=== PATIENT | female | born 1985 | race American Indian/Alaskan Native ===

== ENCOUNTER 2016-11-23 12:11 | Emergency (ER) | payer MEDICAID ==
--- NOTE | 2016-11-23 13:08 | Emergency Department Report ---
Chief Complaint: Abdominal Pain Stated Complaint: ABD PAIN Time Seen by Provider: 11/23/16 13:05 - HPI History of Present Illness: Pt c/o abd pain x week pt states the pain is a cramping pain that moves locations - ROS Review of Systems: - n + vomited x 1 on cycle now - Exam Physical Exam: looks well, non toxic abd soft and not tender MSE screening note: Focused history and physical exam performed. Due to findings the following was ordered: labs ED Disposition for MSE Condition: Stable
[2016-11-23 13:46] LABS: Basophils % (Auto) 1.2 % (0.0-1.8); Eosinophils % (Auto) 5.3 % (0.0-4.3); Hematocrit 38.6 % (30.3-42.9); Mean Corpuscular HGB Conc 34 % (30-34); Mean Corpuscular Hemoglobin 31 pg (28-32); Mean Corpuscular Volume 91 fl (79-97); Platelet Count 196 K/mm3 (140-440); Red Blood Count 4.25 M/mm3 (3.65-5.03); Red Cell Distribution Width 14.7 % (13.2-15.2); White Blood Count 5.6 K/mm3 (4.5-11.0)
[2016-11-23 14:01] LABS: Alanine Aminotransferase 8 units/L (7-56); Albumin 3.9 g/dL (3.9-5); Albumin/Globulin Ratio 1.3 %; Alkaline Phosphatase 52 units/L (35-129); Anion Gap 15 mmol/L; Blood Urea Nitrogen 8 mg/dL (7-17); Calcium 8.5 mg/dL (8.4-10.2); Carbon Dioxide 26 mmol/L (22-30); Chloride 104.1 mmol/L (98-107); Glucose 79 mg/dL (65-100); Lipase 25 units/L (13-60); Potassium 3.9 mmol/L (3.6-5.0); Sodium 141 mmol/L (137-145); Total Protein 6.9 g/dL (6.3-8.2)
[2016-11-23 14:54] LABS: Bilirubin,Urine NEG (Negative); Blood,Urine SM (Negative); Ketones,Urine NEG (Negative); Leukocyte Esterase,Urine NEG (Negative); Mucus,Urine FEW /HPF; Nitrite,Urine NEG (Negative); Protein,Urine <15 mg/dL mg/dL (Negative); WBC,Urine < 1.0 /HPF (0.0-6.0)
[2016-11-23 18:08] VITALS: BP 119/65
--- NOTE | 2016-11-30 23:40 | ED Elopement Review ---
ED Pt Elopement review - Results review Lab results: Laboratory Tests 11/23/16 11/23/16 11/23/16 13:29 13:29 13:29 WBC 5.6 RBC 4.25 Hgb 13.0 Hct 38.6 MCV 91 MCH 31 MCHC 34 RDW 14.7 Plt Count 196 Lymph % (Auto) 46.6 H Er[place] % (Auto) 6.9 Eos % (Auto) 5.3 H Baso % (Auto) 1.2 Lymph # 2.6 Erath # 0.4 Eos # 0.3 Baso # 0.1 Seg Neutrophils % 40.0 Seg Neutrophils # 2.2 Sodium 141 Potassium 3.9 Chloride 104.1 Carbon Dioxide 26 Anion Gap 15 BUN 8 Creatinine 0.8 Estimated GFR > 60 BUN/Creatinine Ratio 10.00 Glucose 79 Calcium 8.5 Total Bilirubin 0.30 AST 15 ALT 8 Alkaline Phosphatase 52 Total Protein 6.9 Albumin 3.9 Albumin/Globulin Ratio 1.3 Lipase 25 HCG, Qual Negative Urine Color Urine Turbidity Urine pH Ur Specific [place] Urine Protein Urine Glucose (UA) Urine Ketones Urine Blood Urine Nitrite Urine Bilirubin Urine Urobilinogen Ur Leukocyte Esterase Urine WBC (Auto) Urine RBC (Auto) U Epithel Cells (Auto) Urine Mucus 11/23/16 Unknown WBC RBC Hgb Hct MCV MCH MCHC RDW Plt Count Lymph % (Auto) Erath % (Auto) Eos % (Auto) Baso % (Auto) Lymph # [place] # Eos # Baso # Seg Neutrophils % Seg Neutrophils # Sodium Potassium Chloride Carbon Dioxide Anion Gap BUN Creatinine Estimated GFR BUN/Creatinine Ratio Glucose Calcium Total Bilirubin AST ALT Alkaline Phosphatase Total Protein Albumin Albumin/Globulin Ratio Lipase HCG, Qual Urine Color Yellow Urine Turbidity Clear Urine pH 7.0 Ur Specific [place] 1.020 Urine Protein <15 mg/dl Urine Glucose (UA) Neg Urine Ketones Neg Urine Blood Sm Urine Nitrite Neg Urine Bilirubin Neg Urine Urobilinogen 4.0 Ur Leukocyte Esterase Neg Urine WBC (Auto) < 1.0 Urine RBC (Auto) 3.0 U Epithel Cells (Auto) 1.0 Urine Mucus Few - Call Back decision Pt Call Back Decision: No action required
== END 2016-11-23 17:00 ==
LOC: ED 12:11
DX: R10.9 Unspecified abdominal pain (principal); Z53.21 Procedure and treatment not carried out due to patient leaving prior to being seen by health care provider
CPT/HCPCS: 36415; 80053; 81001; 83690; 84703; 85025

== ENCOUNTER 2019-04-03 14:53 | Inpatient (IN) | payer MEDICAID ==
[2019-04-03] MEDS ORDERED: TERBUTALINE 1 MG/1 ML INJ SUB-Q PRN (16:58)
[2019-04-03] MEDS ORDERED: TERBUTALINE 1 MG/1 ML INJ IVP PRN (16:58)
[2019-04-03] MEDS ORDERED: MINERAL OIL 30 ML ORAL LIQD PO PRN (16:58)
[2019-04-03] MEDS ORDERED: fentaNYL 100 MCG/2 ML INJ IV PRN (16:58)
[2019-04-03] MEDS ORDERED: BUTORPHANOL 2 MG/1 ML INJ IV PRN (16:58)
[2019-04-03] MEDS ORDERED: LIDOCAINE (2%) 20 MG/1 ML VIAL 20 ML MDV INFILTRATI ONE (16:58)
[2019-04-03] MEDS ORDERED: OXYTOCIN 20 UNIT/1000ML DRIP 20 UNITS/1,000 ML BAG IV SCH (17:00)
[2019-04-03] MEDS ORDERED: DINOPROSTONE 10 MG VAG SUPP VG ONE (17:30)
[2019-04-03] MEDS: LACTATED RINGERS 1,000 ML IV SCH ×2 (17:39→23:46)
[2019-04-03 18:21] LABS: Hematocrit 32.9 % (30.3-42.9); Hemoglobin 11.3 gm/dl (10.1-14.3); Mean Corpuscular HGB Conc 34 % (30-34); Mean Corpuscular Volume 92 fl (79-97); Platelet Count 235 K/mm3 (140-440); Red Blood Count 3.59 M/mm3 (3.65-5.03); Red Cell Distribution Width 14.2 % (13.2-15.2)
[2019-04-03] MEDS: valACYclovir 500 MG TAB PO SCH (22:00)
--- NOTE | 2019-04-03 23:41 | History and Physical Report ---
History of Present Illness Date of examination: 04/03/19 Date of admission: 04/03/2019 Chief complaint: IOL for nonreassuring NST in clinic History of present illness: 33yo at 40+6/7 weeks by second trimester US with JARRELL 03/28/19; for IOL for Non-reassuring NST in clinic She is without complaint today. 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 Plans BTL-tubal consent signed [facility]: initial visit 08/30/09, last visit 04/03/19, total visits #18 Past History Past Medical History: no pertinent history Past Surgical History: no surgical history [employer] [employer] History: denies: abnormal PAP smear Family/Genetic History: none Social history: no significant social history, single, lives with family - Obstetrical History Expected Date of Delivery: 03/28/19 Actual Gestation: 40 Week(s) 6 Day(s) : 3 Para: 1 Hx # Term Pregnancies: 1 Spontaneous Abortions: 1 Number of Living Children: 1 #1 year: 2,004 Birthweight: 3.175 kg Method of Delivery: Vaginal Gestational age at delivery: 39 Medications and Allergies Allergies Allergy/AdvReac Type Severity Reaction Status Date / Time No Known Allergies Allergy Verified 07/10/15 21:03 Home Medications Medication Instructions Recorded Confirmed Last Taken Type Ferrous Sulfate [Feosol] 325 mg PO TID 04/03/19 04/03/19 04/03/19 09:00 History valACYclovir [Valtrex] 500 tab PO BID 04/03/19 04/03/19 04/03/19 09:00 History Active Meds: Active Medications Butorphanol Tartrate (Stadol) 2 mg IV Q2H PRN PRN Reason: Pain , Severe (7-10) Ephedrine Sulfate (Ephedrine Sulfate) 10 mg IV Q2M PRN PRN Reason: Hypotension Fentanyl (Sublimaze) 100 mcg IV Q2H PRN PRN Reason: Labor Pain Oxytocin/Sodium Chloride (Pitocin/Ns 20 Unit/1000ml Drip) 20 units in 1,000 mls @ 125 mls/hr IV DIRECT NEFTALI Lactated Ringer's (Lactated Ringers) 1,000 mls @ 125 mls/hr IV DIRECT [facility] Last Admin: 04/03/19 17:39 Dose: 125 mls/hr Documented by: Mineral Oil (Mineral Oil) 30 ml PO QHS PRN PRN Reason: Constipation Terbutaline Sulfate (Brethine) 0.25 mg SUB-Q ONCE PRN PRN Reason: Hyperstimulation/Hypertonicity Terbutaline Sulfate (Brethine) 0.25 mg IVP ONCE PRN PRN Reason: Hyperstimulation/Hypertonicity Valacyclovir HCl (Valtrex) 500 mg PO BID [facility] Last Admin: 04/03/19 22:00 Dose: 500 mg Documented by: Review of Systems All systems: negative - Vital Signs Vital signs: Vital Signs Temp Resp BP 97.8 F 18 107/59 04/03/19 15:36 04/03/19 15:36 04/03/19 15:36 Temp Pulse Resp BP Pulse Ox 98.0 F 75 16 128/56 96 04/03/19 20:12 04/03/19 23:31 04/03/19 20:12 04/03/19 20:11 04/03/19 23:31 - Physical Exam Breasts: Positive: deferred Cardiovascular: Regular rate Lungs: Positive: Clear to auscultation Abdomen: Positive: normal appearance Genitourinary (Female): Positive: normal external genitalia Uterus: Positive: normal size Anus/Rectum: Positive: normal perianal skin Extremities: Positive: normal Deep Tendon Reflex Grade: Normal +2 - Obstetrical FHR: category 1 Uterine Contraction Monitor Mode: External Cervical Dilatation: 0.5 Cervical Effacement Percentage: 0 station: -4 Uterine Contraction Pattern: Irregular Uterine Contraction Intensity: Mild Results Result Diagrams: 04/03/19 17:35 Abnormal lab results 04/03/19 Range/Units 17:35 RBC 3.59 L (3.65-5.03) M/mm3 All other labs normal. Assessment and Plan IOL GBS negative Plan cervidil, oxytocin in AM admission labs CFM maternal/ status reassuring overall Stephen SMITH
[2019-04-04] MEDS ORDERED: DINOPROSTONE 10 MG VAG SUPP VG ONE (06:56)
--- NOTE | 2019-04-04 09:46 | Progress Note ---
Assessment and Plan - Patient Problems (1) 41 weeks gestation of Current Visit: Yes Status: Acute (2) Encounter for induction of labor Current Visit: Yes Status: Acute Plan to address problem: Continue current management 2nd cervidil insertion after ambulation and breakfast Anticipate vaginal delivery Subjective - Subjective Date of service: 04/04/19 Principal diagnosis: 41 weeks IUP; IOL for postdates Interval history: see H&P Patient reports: movement normal, no loss of fluid, no vaginal bleeding, no contractions Objective - Vital Signs Vital Signs: Vital Signs - 12hr 04/03/19 04/03/19 04/03/19 21:46 21:51 21:56 Temperature Pulse Rate 73 74 76 Respiratory Rate Blood Pressure O2 Sat by Pulse 97 97 97 Oximetry 04/03/19 04/03/19 04/03/19 22:01 22:06 22:11 Temperature Pulse Rate 87 76 79 Respiratory Rate Blood Pressure O2 Sat by Pulse 98 97 97 Oximetry 04/03/19 04/03/19 04/03/19 22:16 22:21 22:26 Temperature Pulse Rate 72 84 80 Respiratory Rate Blood Pressure O2 Sat by Pulse 97 97 97 Oximetry 04/03/19 04/03/19 04/03/19 22:31 22:36 22:41 Temperature Pulse Rate 79 81 81 Respiratory Rate Blood Pressure O2 Sat by Pulse 97 96 96 Oximetry 04/03/19 04/03/19 04/03/19 22:46 22:51 22:56 Temperature Pulse Rate 85 85 75 Respiratory Rate Blood Pressure O2 Sat by Pulse 96 96 100 Oximetry 04/03/19 04/03/19 04/03/19 23:01 23:06 23:11 Temperature Pulse Rate 77 79 80 Respiratory Rate Blood Pressure O2 Sat by Pulse 100 100 96 Oximetry 04/03/19 04/03/19 04/03/19 23:13 23:16 23:21 Temperature Pulse Rate 78 76 86 Respiratory Rate Blood Pressure O2 Sat by Pulse 94 97 97 Oximetry 04/03/19 04/03/19 04/03/19 23:26 23:31 23:40 Temperature Pulse Rate 76 75 74 Respiratory Rate Blood Pressure 112/59 O2 Sat by Pulse 96 96 99 Oximetry 04/03/19 04/03/19 04/03/19 23:45 23:46 23:50 Temperature 98.3 F Pulse Rate 66 65 Respiratory 16 Rate Blood Pressure O2 Sat by Pulse 96 97 Oximetry 04/03/19 04/04/19 04/04/19 23:55 00:00 00:05 Temperature Pulse Rate 61 66 72 Respiratory Rate Blood Pressure O2 Sat by Pulse 96 95 96 Oximetry 04/04/19 04/04/19 04/04/19 00:10 00:15 00:18 Temperature Pulse Rate 74 74 80 Respiratory Rate Blood Pressure O2 Sat by Pulse 95 95 94 Oximetry 04/04/19 04/04/19 04/04/19 00:20 00:25 00:30 Temperature Pulse Rate 76 63 68 Respiratory Rate Blood Pressure O2 Sat by Pulse 95 97 96 Oximetry 04/04/19 04/04/19 04/04/19 00:35 00:40 03:56 Temperature 98.1 F Pulse Rate 70 75 Respiratory 17 Rate Blood Pressure O2 Sat by Pulse 96 95 Oximetry 04/04/19 04/04/19 04/04/19 03:57 04:26 04:28 Temperature Pulse Rate 60 70 71 Respiratory Rate Blood Pressure 88/43 113/66 O2 Sat by Pulse 100 Oximetry 04/04/19 04/04/19 04/04/19 04:33 04:38 04:43 Temperature Pulse Rate 69 61 74 Respiratory Rate Blood Pressure O2 Sat by Pulse 98 98 98 Oximetry 04/04/19 04/04/19 04/04/19 04:48 04:53 04:58 Temperature Pulse Rate 72 78 61 Respiratory Rate Blood Pressure O2 Sat by Pulse 98 99 100 Oximetry 04/04/19 04/04/19 04/04/19 05:03 05:08 05:13 Temperature Pulse Rate 62 75 61 Respiratory Rate Blood Pressure O2 Sat by Pulse 98 97 98 Oximetry 04/04/19 04/04/19 04/04/19 05:18 05:23 05:28 Temperature Pulse Rate 83 73 65 Respiratory Rate Blood Pressure O2 Sat by Pulse 98 98 99 Oximetry 04/04/19 04/04/19 04/04/19 05:33 05:38 05:43 Temperature Pulse Rate 67 65 73 Respiratory Rate Blood Pressure O2 Sat by Pulse 98 98 97 Oximetry 04/04/19 04/04/19 04/04/19 05:48 05:53 05:58 Temperature Pulse Rate 71 83 80 Respiratory Rate Blood Pressure O2 Sat by Pulse 96 97 98 Oximetry 04/04/19 04/04/19 04/04/19 06:03 06:08 06:13 Temperature Pulse Rate 71 69 67 Respiratory Rate Blood Pressure O2 Sat by Pulse 100 100 98 Oximetry 04/04/19 04/04/19 04/04/19 06:18 06:23 06:28 Temperature Pulse Rate 70 62 85 Respiratory Rate Blood Pressure O2 Sat by Pulse 98 98 98 Oximetry 04/04/19 04/04/19 04/04/19 06:33 06:38 06:43 Temperature Pulse Rate 77 67 73 Respiratory Rate Blood Pressure O2 Sat by Pulse 97 98 97 Oximetry 04/04/19 04/04/19 04/04/19 06:48 06:53 06:58 Temperature Pulse Rate 68 82 73 Respiratory Rate Blood Pressure O2 Sat by Pulse 98 97 97 Oximetry 04/04/19 04/04/19 04/04/19 07:03 07:08 07:13 Temperature Pulse Rate 70 79 74 Respiratory Rate Blood Pressure O2 Sat by Pulse 98 98 98 Oximetry 04/04/19 04/04/19 04/04/19 07:18 07:23 07:28 Temperature Pulse Rate 64 65 83 Respiratory Rate Blood Pressure O2 Sat by Pulse 98 97 96 Oximetry 04/04/19 04/04/19 04/04/19 07:33 07:38 07:43 Temperature Pulse Rate 78 78 72 Respiratory Rate Blood Pressure O2 Sat by Pulse 97 98 98 Oximetry 04/04/19 04/04/19 04/04/19 07:48 07:54 07:59 Temperature Pulse Rate 75 68 80 Respiratory Rate Blood Pressure O2 Sat by Pulse 97 99 97 Oximetry 04/04/19 04/04/19 04/04/19 08:04 08:09 08:14 Temperature Pulse Rate 86 74 73 Respiratory Rate Blood Pressure O2 Sat by Pulse 97 98 98 Oximetry 04/04/19 04/04/19 08:19 08:24 Temperature Pulse Rate 66 73 Respiratory Rate Blood Pressure O2 Sat by Pulse 97 98 Oximetry - Exam FHR: auscultation normal, category 2 FHR comments: FHR 140, moderate variability, 15x15 accels, one episode of <2 mins decel noted; not a/w ctx Uterine Contraction Monitor Mode: External Uterine Contraction Pattern: Irregular Extremities: normal - Labs Labs: Abnormal Labs 04/03/19 17:35 RBC 3.59 L Laboratory Results - last 24 hr 04/03/19 04/03/19 17:35 17:35 WBC 6.7 RBC 3.59 L Hgb 11.3 Hct 32.9 MCV 92 MCH 31 MCHC 34 RDW 14.2 Plt Count 235 Blood Type O POSITIVE Antibody Screen Negative
[2019-04-04] MEDS: valACYclovir 500 MG TAB PO SCH ×2 (10:02→22:35)
[2019-04-04] MEDS: LACTATED RINGERS 1,000 ML IV SCH (19:29)
[2019-04-04] MEDS ORDERED: OXYTOCIN DRIP 30 UNITS/500 ML BAG IV SCH (23:45)
[2019-04-05] MEDS: LACTATED RINGERS 1,000 ML IV SCH ×2 (01:10→02:46)
[2019-04-05] MEDS ORDERED: SODIUM CHLORIDE P/F VIAL 10 ML 10 ML ONE (01:16)
[2019-04-05] MEDS ORDERED: DEXMEDETOMIDINE 200 MCG/2 ML VIAL IV ONE (01:16)
[2019-04-05] MEDS ORDERED: NALOXONE 2 MG/2 ML INJ IV PRN (01:32)
--- NOTE | 2019-04-05 01:33 | Anesthesia Consultation ---
Anesthesia Consult and Med Hx Date of service: 04/05/19 - Airway Anesthetic Teeth Evaluation: Good ROM Head & Neck: Adequate Mental/Hyoid Distance: Adequate Mallampati Class: Class II Intubation Access Assessment: Probably Good - Pulmonary Exam CTA: Yes - Cardiac Exam Cardiac Exam: RRR - Pre-Operative Health Status ASA Pre-Surgery Classification: ASA3 Proposed Anesthetic Plan: Epidural - Pulmonary Hx Asthma: No - Cardiovascular System Hx Hypertension: No - Central Nervous System Hx Seizures: No Hx Psychiatric Problems: No - Endocrine Hx Renal Disease: No Hx Hypothyroidism: No Hx Hyperthyroidism: No - Hematic Hx Anemia: Yes Hx Sickle Cell Disease: No - Other Systems Hx Alcohol Use: No Hx Obesity: Yes
[2019-04-05] MEDS: ePHEDrine SULFATE 50 MG/1 ML INJ IV PRN ×5 (01:54→02:46)
[2019-04-05] MEDS ORDERED: fentaNYL-BUPIV 2 MCG/ML-0.125% 200 MCG/100 ML BAG EPIDURAL SCH (02:00)
--- NOTE | 2019-04-05 06:10 | Event Note ---
Date: 04/05/19 S: Pt in left lateral position with eyes closed. Partner at bedside. O: FHR baseline 130, moderate variability, 15x15 accels, occasional early & variable decels Irregular contractions AROM by RN during cervical exam; SVE 4.5/100/-1 per RN FSE in place; inserted by RN Pitocin @ 2 mU/min Epidural anesthesia in place. Edmondson catheter in place A: G 3 P 1 @ 41w1d IOL for postdates x2 days Category II FHR Labor progressing well P: Continue current management Continue intrauterine resuscitation measures per protocol Pitocin initiated for labor augmentation Anticipate vaginal delivery
--- NOTE | 2019-04-05 07:24 | Event Note ---
Date: 04/05/19 Pt in right lateral position. Reports satisfactory pain relief with Epidural. SVE /-2. IUPC inserted. Pt tolerated the procedure well.
[2019-04-05] MEDS ORDERED: SODIUM CHLORIDE 0.9% 1000 ML 1,000 ML ONE (07:28)
[2019-04-05] MEDS ORDERED: SODIUM CHLORIDE 0.9% 500 ML 500 ML ONE (07:28)
[2019-04-05] MEDS ORDERED: SODIUM CHLORIDE 0.9% 1000 ML 1,000 ML VG SCH (07:30)
--- NOTE | 2019-04-05 08:19 | Event Note ---
Date: 04/05/19 Recurrent variable decels and occ late decels noted. Amnioinfusion in progress. Pt repositioned from side to side. Pitocin discontinued. Cervix unchanged. Dr. Arredondo notified. No orders received. Since it is change of shift, Dr. Sparks notified and asked to come for bedside evaluation. Dr. Sparks called for a C- Section. Discussed plan of care with patient and her partner. All questions answered. Patient and partner voiced understanding. JOANN Cuellar notified to get patient ready for a .
[2019-04-05] MEDS ORDERED: LIDOCAINE 2%/EPINEPHRINE 1:200,000 VIAL (20 ML) INFILTRATI ONE (08:56)
[2019-04-05] MEDS ORDERED: LACTATED RINGERS 1,000 ML IV SCH (09:00)
[2019-04-05] MEDS ORDERED: ceFAZolin/Water 2 GM/20 ML 2 GM/20 ML SYRINGE IV NR (09:00)
[2019-04-05] MEDS ORDERED: OXYTOCIN 20 UNIT/1000ML DRIP 20 UNITS/1,000 ML BAG IV SCH ×2 (09:00→11:00)
[2019-04-05] MEDS ORDERED: BICITRA ORAL LIQD 30ML PO ONE (09:00)
[2019-04-05] MEDS ORDERED: ONDANSETRON 4 MG/2 ML INJ IV PRN (09:05)
[2019-04-05] MEDS ORDERED: NALOXONE 0.4 MG/1 ML INJ IV PRN ×2 (09:05→10:50)
[2019-04-05] MEDS ORDERED: HYDROmorphone 1 MG/1 ML INJ IV PRN ×2 (09:05)
--- NOTE | 2019-04-05 09:05 | Anesthesia Day of Surgery ---
Anesthesia Day of Surgery - Day of Surgery Patient Examined: Yes Patient H&P Reviewed: Yes Patient is NPO: Yes Beta Blockers: No Cardiac Clearance: No Pulmonary Clearance: No Chace's Test: N/A
[2019-04-05] MEDS ORDERED: SODIUM CHLORIDE 0.9% IRR 1,500 ML BOTTLE IR ONE (09:23)
[2019-04-05] MEDS ORDERED: WATER FOR IRRIG STERILE 1,500 ML BOTTLE IR ONE (09:23)
[2019-04-05] MEDS ORDERED: FAMOTIDINE 20 MG/2 ML INJ IV ONE (10:00)
[2019-04-05] MEDS ORDERED: METOCLOPRAMIDE 10 MG/2 ML INJ IV ONE (10:00)
--- NOTE | 2019-04-05 10:33 | Operative Report ---
Operative Report Operative Report: Date of procedure: 04/05/2018 Pre-operative diagnosis: 1. Intrauterine at 41 1/7 weeks 2. Failed induction of labor 3. Non-Reassuring surveillance 4. Desires permanent sterilization Post-operative diagnosis: same Procedure name(s): 1. Primary low transverse section 2. Bilateral Tubal Ligation Surgeon: Lenard Sparks MD Rehab Nursing Tech: None Anesthesia: General anesthesia by Taniya Queen CRNA EBL: 700 mL's Findings: A 3287gm male Apgars 8 at 1 minute 9 at 5 minutes. Clear amniotic fluid. Normal uterus with normal tubes and ovaries bilaterally. Procedure: After a satisfactory level of epidural anesthesia was obtained, the patient was prepped and draped in usual sterile fashion and the skin knife was used to make a transverse skin incision. The incision was incised down to layer of the fascia, which was nicked in the midline and extended laterally using the Bovie cautery. The rectus muscles were dissected off the rectus fascia both superiorly and inferiorly. The rectus bellies in the midline, and the peritoneum was entered under direct visualization. The peritoneal incision was extended superiorly and inferiorly. A bladder flap was created and the bladder blade was then placed. The uterus was scored in a curvilinear linear fashion, entered in the midline revealing clear amniotic fluid. The infant's head was delivered onto the surgical field, the rest of the infant's body was delivered, the cord was doubly clamped and cut and the was handed to the awaiting respiratory team. The placenta was manually removed from the uterus, and the uterus removed from its normal anatomical position. After gentle uterine lavag e, the incision was inspected and found to be without extensions. It was then closed in 2 layers using 0 Vicryl suture in a running interlocking fashion, the second layer imbricating the first. After good hemostasis was achieved, copious amounts or irrigation was performed, and the gutters were suctioned free of blood and blood clots. Attention was then turned to the tubal ligation. First the right fallopian tube was grasped using the Karthaus, and after identifying the fimbriated end of the tube, the Filsche clip was applied to the proximal portion of the right tube. The same procedure was performed on the left fallopian tube. The left fallopian tube was grasped using the Sujey, and after identifying the fimbriated end of the tube, the Filsche clip was applied to the proximal portion of the left tube. The uterus was then returned to its normal anatomical position. Next, the peritoneum was re-approximated using 3-0 Vicryl suture in a running interlocking fashion, and then the rectus muscles were loosely re-approximated using 3-0 Vicryl suture in a [id number] configuration. The fascia was then re-approximated using 0 Vicryl suture in running interlocking fashion. The subcutaneous layer was made hemostatic using Bovie cautery, and the skin edges re-approximated using 4-0 Vicryl suture in a sub-cuticular fashion. Patient tolerated the procedure well was transported to recovery in stable condition.
[2019-04-05] MEDS ORDERED: WITCH HAZEL/ GLYCERIN PAD TP PRN (10:50)
[2019-04-05] MEDS ORDERED: SIMETHICONE 80 MG CHEW TAB PO PRN (10:50)
[2019-04-05] MEDS ORDERED: LANOLIN/ZINC/DIMETHICONE (LANSINOH) 7 GM TP PRN (10:50)
[2019-04-05] MEDS ORDERED: ACETAMINOPHEN 325 MG TAB PO PRN (10:50)
[2019-04-05] MEDS ORDERED: MAGNESIUM HYDROXIDE (MOM) ORAL LIQD UDC PO PRN (10:50)
[2019-04-05] MEDS ORDERED: SENNOSIDES 8.6 MG TAB PO PRN (10:50)
--- NOTE | 2019-04-05 11:01 | Post Anesthesia Evaluation ---
- Post Anesthesia Evaluation Patient Participated: Yes Airway Patent: Yes Stable Respiratory Function: Yes Nausea/Vomiting: No Temp > 96.8F: Yes Pain Manageable: Yes Adequeate Hydration: Yes Anesthesia Complications: No Block Receding Appropriately: Yes Patient on Ventilator: No
[2019-04-05] MEDS: KETOROLAC 30 MG/1 ML INJ IV PRN (14:17)
[2019-04-05] MEDS: ceFAZolin/NS 1 GM/50 ML 1 GM/50 ML BAG IV SCH (16:15)
[2019-04-05] MEDS: D5W/LACTATED RINGERS 1,000 ML IV SCH (17:15)
[2019-04-06] MEDS: KETOROLAC 30 MG/1 ML INJ IV PRN (00:18)
[2019-04-06] MEDS: D5W/LACTATED RINGERS 1,000 ML IV SCH (00:35)
[2019-04-06] MEDS: ceFAZolin/NS 1 GM/50 ML 1 GM/50 ML BAG IV SCH (00:47)
[2019-04-06 00:55] LABS: Hematocrit 33.4 % (30.3-42.9)
[2019-04-06] MEDS ORDERED: ceFAZolin/NS 1 GM/50 ML 1 GM/50 ML BAG IV SCH (01:00)
[2019-04-06] MEDS: HYDROcodone/ACETAMINOPHEN 5-325 MG TAB PO PRN ×3 (09:31→22:58)
[2019-04-06] MEDS: FERROUS SULFATE 325 MG TAB PO SCH (09:31)
[2019-04-06] MEDS: PRENATAL VIT27-FE FUMARATE-FOLIC ACID VIT TAB PO SCH (09:31)
--- NOTE | 2019-04-06 10:02 | Progress Note ---
Assessment and Plan - Patient Problems (1) S/P primary low transverse Current Visit: Yes Status: Acute Plan to address problem: Continue routine PP orders Keep drsg clean and dry, remove 48 hrs Post-op Anticipate d/c in 24-48 hrs (2) Status post tubal ligation at time of delivery, current hospitalization Current Visit: Yes Status: Acute Subjective - Subjective Date of service: 04/06/19 Principal diagnosis: S/P PLT-C/S; S/P BTL; POD#3 Interval history: See admission H & P; OB operative summary and PP progress note Patient reports: appetite normal, voiding normally, pain poorly controlled (reports she has not taken any pain meds since yesterday, advised to take meds around the clock as ordered, verbalized understanding) : doing well, bottle feeding Objective - Vital Signs Latest vital signs: Vital Signs Temp Pulse Resp BP BP Pulse Ox 04/06/19 08:55 98.3 F 76 18 100/57 04/06/19 04:56 98.2 F 65 20 101/56 97 04/06/19 01:33 98.3 F 74 20 100/45 99 04/05/19 20:10 98.2 F 79 20 93/44 100 04/05/19 16:28 99.1 F 64 20 112/57 99 04/05/19 12:17 71 98 04/05/19 12:15 98 F 74 20 106/72 98 04/05/19 11:41 97.4 F L 64 15 113/58 100 04/05/19 11:25 77 14 108/50 99 04/05/19 11:10 67 14 113/57 100 04/05/19 10:55 71 14 118/37 98 04/05/19 10:50 71 14 99/58 100 04/05/19 10:45 72 12 92/33 100 04/05/19 10:40 96.3 F L 89 13 118/43 100 Intake and Output 04/05/19 04/06/19 04/06/19 23:59 07:59 15:59 Intake Total 410 1156.667 120 Output Total 2650 Balance -2240 1156.667 120 Intake: IV 50 916.667 ANCEF/NS 1 GM/50 ML 1 gm 50 In 50 ml @ 100 mls/hr IV Q8H [facility] Rx#:[id number] 1,000 ml @ 125 mls/ 916.667 hr IV DIRECT NEFTALI Rx#: [id number] Oral 360 120 Intake, Free Water 240 Output: Urine 2650 Indwelling Catheter 2650 Other: Total, Intake Amount 120 120 Total, Output Amount 550 # Voids Void 2 1 - Exam Breasts: Present: normal Cardiovascular: Present: Regular rate Lungs: Present: Normal air movement Abdomen: Present: soft, tenderness Uterus: Present: firm, fundal height below umbilicus (U-1) Extremities: Present: edema (slight edema in feet/ankles) Deep Tendon Reflex Grade: Normal +2 Incision: Present: dry, intact (no shadowing drainage or bleeding noted), dressed
[2019-04-06] MEDS ORDERED: TETANUS,DIPH,PERTUSS(ACELL) VACCINE 0.5 ML SYRINGE IM ONE (10:52)
[2019-04-06] MEDS ORDERED: MEASLES, MUMPS & RUBELLA 12,500 UNIT/0.5 ML VACCINE SUB-Q ONE (10:52)
[2019-04-07] MEDS: oxyCODONE /ACETAMINOPHEN 5-325MG TAB PO PRN ×2 (02:41→15:30)
[2019-04-07] MEDS: IBUPROFEN 800 MG TAB PO PRN ×2 (06:53→12:40)
[2019-04-07] MEDS: PRENATAL VIT27-FE FUMARATE-FOLIC ACID VIT TAB PO SCH (10:02)
[2019-04-07] MEDS: FERROUS SULFATE 325 MG TAB PO SCH (10:02)
--- NOTE | 2019-04-07 10:17 | Progress Note ---
Assessment and Plan - Patient Problems (1) S/P primary low transverse Current Visit: Yes Status: Acute Plan to address problem: POD 3 - stable Discharge to home today Follow up at [facility] as needed or in 1 weeks for incision check (2) Status post tubal ligation at time of delivery, current hospitalization Current Visit: Yes Status: Acute Subjective - Subjective Date of service: 04/07/19 Principal diagnosis: POD #3; s/p Primary LTCS and BTL Interval history: see H&P, OB Progress Note, Event Notes and Operative Report Patient reports: appetite normal, voiding normally, pain well controlled, flatus, ambulating normally, no dizzy ambulation, no bowel movement : doing well, other (breast and bottle feeding) Objective - Vital Signs Latest vital signs: Vital Signs Temp Pulse Resp BP BP Pulse Ox 04/07/19 08:27 98.7 F 77 18 112/57 99 04/06/19 22:45 98.2 F 73 20 113/51 100 04/06/19 17:20 99.1 F 72 18 102/52 Intake and Output 04/06/19 04/07/19 04/07/19 23:59 07:59 15:59 Intake Total 360 120 Balance 360 120 Intake: Oral 360 120 Other: Total, Intake Amount 360 120 # Voids Void 1 - Exam Cardiovascular: Present: Regular rate Lungs: Present: Clear to auscultation, Normal air movement Abdomen: Present: normal appearance, soft Vulva: both: normal Uterus: Present: normal, firm, fundal height below umbilicus Extremities: Present: normal Incision: Present: normal, dry, intact, other (steri strips in place) Comments: scant lochia
--- NOTE | 2019-04-07 10:21 | Discharge Summary ---
Providers - Providers Date of Admission: 04/04/19 14:29 Date of discharge: 04/07/19 Attending physician: MARILIA SOLIS MD Primary care physician: MARILIA SOLIS MD Hospitalization Reason for admission: induction of labor, IUP at term Delivery: Procedure: primary low transverse Episiotomy: none Laceration: none Incision: normal, dry, intact, other (steri strips in place) Other procedures: tubal ligation complications: none Discharge diagnosis: IUP at term delivered baby: male Hospital course: Uncomplicated Condition at discharge: Stable Disposition: DC-01 TO HOME OR SELFCARE - Discharge Diagnoses (1) S/P primary low transverse Status: Acute (2) Status post tubal ligation at time of delivery, current hospitalization Status: Acute Plan - Discharge Medications Prescriptions: Ibuprofen [Motrin 800 MG tab] 800 mg PO Q6H PRN #30 tablet PRN Reason: Pain, Mild (1-3) - Provider Discharge Summary Activity: routine, no sex for 6 weeks, no heavy lifting 4 weeks, no strenuous exercise Diet: routine Instructions: routine Additional instructions: [] Smoking cessation referral if applicable(refer to patient education folder for contact #) [] Refer to [facility] Booklet Call your doctor immediately for: * Fever > 100.5 * Heavy vaginal bleeding ( >1 pad per hour) * Severe persistent headache * Shortness of breath * Reddened, hot, painful area to leg or breast * Drainage or odor from incision. * Keep incision clean and dry at all times and follow doctor's instructions regarding bathing/showering - Follow up plan Follow up: MARILIA SOLIS MD [Primary Care Provider] - 7 Days (Follow up at [facility] as needed or in 1 weeks for incision check)
[2019-04-07 15:19] VITALS: BP 108/71
[2019-04-07] MEDS ORDERED: MEASLES, MUMPS & RUBELLA 12,500 UNIT/0.5 ML VACCINE SUB-Q ONE (16:56)
== END 2019-04-07 18:12 | disposition home or self-care (01) | DRG 765 ==
LOC: TRG 14:53 → LD 14:53 → TRG 04-04 14:27 → LD 04-04 14:29 → OB 04-05 13:29
PROVIDERS: ADMIT Obstetrics & Gynecology; ATTEND Obstetrics & Gynecology
PROC: 3E0P7VZ Introduction of Hormone into Female Reproductive, Via Natural or Artificial Opening (ICD-10-PCS; 2019-04-04)
PROC: 10D00Z1 Extraction of Products of Conception, Low, Open Approach (ICD-10-PCS; principal; 2019-04-05)
PROC: 0UL70CZ Occlusion of Bilateral Fallopian Tubes with Extraluminal Device, Open Approach (ICD-10-PCS; 2019-04-05)
PROC: 10907ZC Drainage of Amniotic Fluid, Therapeutic from Products of Conception, Via Natural or Artificial Opening (ICD-10-PCS; 2019-04-05)
PROC: 10H07YZ Insertion of Other Device into Products of Conception, Via Natural or Artificial Opening (ICD-10-PCS; 2019-04-05)
PROC: 3E0234Z Introduction of Serum, Toxoid and Vaccine into Muscle, Percutaneous Approach (ICD-10-PCS; 2019-04-06)
PROC: 3E0134Z Introduction of Serum, Toxoid and Vaccine into Subcutaneous Tissue, Percutaneous Approach (ICD-10-PCS; 2019-04-07)
DX: O48.0 Post-term pregnancy (principal); O98.52 Other viral diseases complicating childbirth; O99.214 Obesity complicating childbirth; Z37.0 Single live birth; Z23 Encounter for immunization; Z3A.40 40 weeks gestation of pregnancy; O61.0 Failed medical induction of labor; Z30.2 Encounter for sterilization
CPT/HCPCS: 36415; 85014; 85018; 85027; 86850; 86900; 86901; 90707; G0378; A6250; J0690; J1170; J1885; J2590; J2765; J3010; J3490; J7030; J7040; J7120; J7121

== ENCOUNTER 2021-02-24 12:37 | Emergency (ER) | payer OTHER, MEDICAID ==
[2021-02-24 12:44] VITALS: BP 104/55
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
== END 2021-02-24 14:13 | disposition home or self-care (01) ==
LOC: ED 12:37
DX: M54.2 Cervicalgia (principal); M54.6 Pain in thoracic spine; M79.642 Pain in left hand; V49.49XA Driver injured in collision with other motor vehicles in traffic accident, initial encounter; Y93.89 Activity, other specified; Y92.89 Other specified places as the place of occurrence of the external cause; Y99.8 Other external cause status
CPT/HCPCS: 99283